=== PATIENT | male | born 1990 | race African-American/Black ===

== ENCOUNTER 2017-10-17 16:45 | Emergency (ER) | payer MEDICAID ==
[~2017-10-17] VITALS: Ht 167.6 cm; Wt 156.0 kg
[2017-10-17] MEDS ORDERED: IBUPROFEN 400MG TABLET PO ONE (18:45)
[2017-10-17 19:07] LABS: EOSINOPHILS % 1.3 % (0.0-5.0); HEMATOCRIT. 39.7 % (42.0-52.0); HEMOGLOBIN. 13.3 g/dL (14.0-18.0); LYMPHOCYTES % 27.2 % (20.0-50.0); MEAN CORPUSCULAR HEMOGLOBIN 29.2 pg (28.0-32.0); MEAN CORPUSCULAR VOLUME 87.2 fL (80.0-94.0); MEAN PLATELET VOLUME 7.8 fl (7.4-10.4); NEUTROPHILS % 60.5 % (40.0-76.0); PLATELET 347 x1000/uL (130-400); RED BLOOD CELL COUNT 4.56 mill/uL (4.7-6.1); RED CELL DISTRIBUTION WIDTH 13.8 % (11.6-14.6)
[2017-10-17 19:12] LABS: CHLORIDE 108 mEq/L (98-107)
[2017-10-17 21:45] VITALS: BP 110/70
== END 2017-10-17 21:50 | disposition home or self-care (01) ==
LOC: ER 16:45
DX: R07.89 Other chest pain (principal); B48.8 Other specified mycoses; L30.9 Dermatitis, unspecified; E66.9 Obesity, unspecified; Z68.43 Body mass index [BMI] 50.0-59.9, adult
CPT/HCPCS: 36415; 71045; 80053; 83690; 83880; 84484; 85025; 93005; 99285

== ENCOUNTER 2018-07-06 09:55 | Emergency (ER) | payer MEDICAID ==
[~2018-07-06] VITALS: Ht 182.9 cm; Wt 145.0 kg
[2018-07-06 12:00] VITALS: BP 144/86
== END 2018-07-06 12:05 | disposition home or self-care (01) ==
LOC: ER 10:48
DX: L03.116 Cellulitis of left lower limb (principal); R07.89 Other chest pain; J45.909 Unspecified asthma, uncomplicated; E66.01 Morbid (severe) obesity due to excess calories; Z68.41 Body mass index [BMI] 40.0-44.9, adult
CPT/HCPCS: 93005; 99283

== ENCOUNTER 2018-11-22 17:23 | Emergency (ER) | payer MEDICAID ==
[~2018-11-22] VITALS: Ht 170.2 cm; Wt 156.0 kg
[2018-11-22] MEDS ORDERED: HYDROCHLOROTHIAZIDE 25MG TABLET PO ONE (19:15)
[2018-11-22 19:35] LABS: BASOPHILS % 0.9 % (0.0-2.0); EOSINOPHILS % 2.2 % (0.0-5.0); HEMATOCRIT. 43.2 % (42.0-52.0); HEMOGLOBIN. 14.5 g/dL (14.0-18.0); LYMPHOCYTES % 29.5 % (20.0-50.0); MEAN CORPUSCULAR HEMOGLOBIN 30.3 pg (28.0-32.0); MEAN CORPUSCULAR VOLUME 90.2 fL (80.0-94.0); MEAN PLATELET VOLUME 8.2 fl (7.4-10.4); MONOCYTES % 10.8 % (2.0-8.0); NEUTROPHILS % 56.6 % (40.0-76.0); PLATELET 287 x1000/uL (130-400); RED BLOOD CELL COUNT 4.79 mill/uL (4.7-6.1); RED CELL DISTRIBUTION WIDTH 13.3 % (11.6-14.6)
[2018-11-22 19:47] LABS: CHLORIDE 104 mEq/L (98-107)
[2018-11-22] MEDS ORDERED: IBUPROFEN 800MG TABLET PO ONE (21:45)
[2018-11-22] MEDS ORDERED: ACETAMINOPHEN 325MG TABLET PO ONE (21:45)
[2018-11-22 22:05] VITALS: BP 153/97
== END 2018-11-22 22:02 | disposition home or self-care (01) ==
LOC: ER 17:23
DX: R51 Headache (principal); I10 Essential (primary) hypertension; J45.909 Unspecified asthma, uncomplicated; F84.0 Autistic disorder
CPT/HCPCS: 36415; 71045; 83880; 84484; 93005; 99284